=== PATIENT | male | born 1990 | race Caucasian/White ===

== ENCOUNTER 2017-03-22 14:56 | Emergency (ER) | payer OTHER ==
[~2017-03-22] VITALS: Ht 190.5 cm; Wt 110.0 kg
[~2017-03-22 14:56] MED LIST: MYCO360 PO; PROG1CAP PO
[2017-03-22 15:04] VITALS: BP 117/62; PULSE 86; RESP 14; TEMP 98.1; O2SAT 100
[2017-03-22] MEDS ORDERED: SODIUM CHLORIDE 0.9% FLUSH 10 ML FLUSH IV FLUSH PRN (15:15)
[2017-03-22] MEDS ORDERED: ONDANSETRON HCL 4 MG/2 ML VIAL IVP ONE (15:15)
[2017-03-22] MEDS ORDERED: SODIUM CHLOR 0.9% 1000 ML INJ 1,000 ML IV SCH (15:15)
--- NOTE | 2017-03-22 15:27 | PD ---
HPI Chief Complaint: muscle cramps Time Seen by Provider: 15:14 Travel History International Travel<30 days: No Contact w/Intl Traveler<30days: No Traveled to known affect area: No History of Present Illness HPI Patient comes emergency Department complaining of possible heat exhaustion. 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 Patient states he was feeling overheated he went inside to get some water started feeling like he is having chills and some muscle cramping in his abdomen went back outside thinking that air condition is making him shiver however when he went back outside he continued to have some shivering. Patient went back inside and laid down. Patient reports he has not ate today and thought that that may be the cause of his symptoms. Patient report he began feeling a little short of breath with this. Patient states that this resolved. Patient now having cramping in his bilateral lower extremities. Patient received minimal fluid from EMS en route. Denies doing anything else for this. Patient denies any chest pain, headaches, fevers, numbness or tingling anywhere, nausea , vomiting, or loss or change in bowel or bladder. PFSH Past Medical History Cardiovascular Problems: Yes ([facility]) Cerebrovascular Accident: No Diabetes: No Diminished Hearing: No Myocardial Infarction: No Past Surgical History Cardiac Surgery: Yes (HEART TRANSPLANT ) Social History Alcohol Use: Yes (OCCAS DRINKER) Tobacco Use: No Substance Use: No Allergies-Medications (Allergen,Severity, Reaction): Coded Allergies: No Known Allergies (Unverified , 03/20/16) Reported Meds & Prescriptions Reported Meds & Active Scripts Active Reported Aspirin 81 Mg Chew 162 Mg CHEW DAILY Sirolimus 0.5 Mg Tab 0.5 Mg PO DAILY Pravastatin 10 Mg Tab 10 Mg PO DAILY Lisinopril 2.5 Mg Tab 2.5 Mg PO DAILY Cellcept (Mycophenolate Mofetil) 250 Mg Cap 540 Mg PO BID Tacrolimus 1 Mg Cap 3 Mg PO Q12H Review of Systems Except as stated in HPI: all other systems reviewed are Neg Physical Exam Narrative GENERAL: Well-developed, well nourished, in no acute distress, and non-ill appearing. SKIN: Focused skin assessment warm and dry. HEAD: Atraumatic. Normocephalic. EYES: Pupils equal and round. EOMI. No scleral icterus. No injection or drainage. ENT: No nasal bleeding or discharge. Mucous membranes pink and moist. NECK: Trachea midline. No JVD. Supple. No nuclear rigidity. CARDIOVASCULAR: Regular rate and rhythm. No murmur appreciated. RESPIRATORY: No accessory muscle use. No respiratory distress. Clear to auscultation. Breath sounds equal bilaterally. GASTROINTESTINAL: Abdomen soft, non-tender, nondistended, and no guarding. Hepatic and splenic margins not palpable. Normal bowel sounds 4. No pulsatile mass. MUSCULOSKELETAL: No obvious deformities. No clubbing. No cyanosis. No edema. Full range of motion. NEUROLOGICAL: Awake and alert. No obvious cranial nerve deficits. Motor grossly within normal limits. Normal speech. PSYCHIATRIC: Appropriate mood and affect; insight and judgment normal. Data Data Last Documented VS Vital Signs Date Time Temp Pulse Resp B/P (MAP) Pulse Ox O2 Delivery O2 Flow Rate FiO2 03/22/17 15:59 98 Room Air 03/22/17 15:04 98.1 86 14 117/62 (80) Orders Orders Basic Metabolic Panel (Bmp) (03/22/17 15:15) Complete Blood Count With Diff (03/22/17 15:15) Urinalysis - C+S If Indicated (03/22/17 15:15) Iv Access Insert/Monitor (03/22/17 15:15) Ecg Monitoring (03/22/17 15:15) Oximetry (03/22/17 15:15) Ondansetron Inj (Zofran Inj) (03/22/17 15:15) Sodium Chlor 0.9% 1000 Ml Inj (Ns 1000 M (03/22/17 15:15) Sodium Chloride 0.9% Flush (Ns Flush) (03/22/17 15:15) Electrocardiogram (03/22/17 15:15) Chest, Single Ap (03/22/17 ) Creatine Kinase (Cpk) (03/22/17 15:15) Protein Corrected Calcium(Pcc) (03/22/17 15:40) Potassium Chlor 20 Meq Premix (Kcl 20 Me (03/22/17 17:00) Potassium Chloride (Kcl) (03/22/17 17:00) Sodium Chlor 0.9% 1000 Ml Inj (Ns 1000 M (03/22/17 17:00) Calcium Gluconate Inj (Calcium Gluconate (03/22/17 17:45) Admit Order (Ed Use Only) (03/22/17 18:40) Labs Laboratory Tests Test 03/22/17 15:40 03/22/17 16:50 White Blood Count 10.0 TH/MM3 Red Blood Count 4.90 MIL/MM3 Hemoglobin 14.7 GM/DL Hematocrit 43.1 % Mean Corpuscular Volume 88.0 FL Mean Corpuscular Hemoglobin 30.1 PG Mean Corpuscular Hemoglobin Concent 34.2 % Red Cell Distribution Width 11.9 % Platelet Count 172 TH/MM3 Mean Platelet Volume 9.5 FL Neutrophils (%) (Auto) 75.9 % Lymphocytes (%) (Auto) 13.7 % Monocytes (%) (Auto) 8.3 % Eosinophils (%) (Auto) 1.7 % Basophils (%) (Auto) 0.4 % Neutrophils # (Auto) 7.6 TH/MM3 Lymphocytes # (Auto) 1.4 TH/MM3 Monocytes # (Auto) 0.8 TH/MM3 Eosinophils # (Auto) 0.2 TH/MM3 Basophils # (Auto) 0.0 TH/MM3 CBC Comment DIFF FINAL Differential Comment Blood Urea Nitrogen 28 MG/DL Creatinine 1.98 MG/DL Random Glucose 68 MG/DL Total Protein 4.7 GM/DL Calcium Level 5.5 MG/DL Sodium Level 144 MEQ/L Potassium Level 2.2 MEQ/L Chloride Level 115 MEQ/L Carbon Dioxide Level 14.7 MEQ/L Anion Gap 14 MEQ/L Estimat Glomerular Filtration Rate 41 ML/MIN Protein Corrected Calcium 6.5 MG/DL Total Creatine Kinase 88 U/L Urine Color YELLOW Urine Turbidity HAZY Urine pH 5.0 Urine Specific [place] 1.006 Urine Protein NEG mg/dL Urine Glucose (UA) NEG mg/dL Urine Ketones NEG mg/dL Urine Occult Blood NEG Urine Nitrite NEG Urine Bilirubin NEG Urine Urobilinogen LESS THAN 2.0 MG/DL Urine Leukocyte Esterase NEG Urine RBC 1 /hpf Urine WBC 1 /hpf Urine Amorphous Sediment RARE Microscopic Urinalysis Comment CULT NOT INDICATED MDM Medical Decision Making Medical Screen Exam Complete: Yes Emergency Medical Condition: Yes Interpretation(s) EKG reviewed by Dr. Weems shows sinus rhythm with ventricular rate of 82. No STEMI. Chest x-ray read by the radiologist shows: No acute disease. Differential Diagnosis Electrolyte abnormality, dehydration, rhabdomyolysis, arrhythmia, other Narrative Course Patient was seen and examined. Initial laboratory and radiological studies were ordered. Patient was hydrated with IV fluid. 1620 patient reassessed found resting comfortably in bed in no acute distress. Reports symptoms improve. After reviewing laboratory values patient potassium calcium was placed. Discussed patient with Dr. Weems, who is agreeable with plan of care and disposition. Discussed all findings and plan care with the patient, who is agreeable for admission. All questions were answered. Discussed patient with hospitalist who is agreeable to admit the patient. Physician Communication Physician Communication [id number] Vazquez, who is agreeable to admit the patient for Dr. Flynn Diagnosis Primary Impression: Renal insufficiency Additional Impressions: Hypokalemia Hypocalcemia Admitting Information Admitting Physician Requests: Observation Condition: Stable Dominik Swanson Mar 22, 2017 15:27
[2017-03-22 15:59] VITALS: O2SAT 98
--- NOTE | 2017-03-22 16:10 | RADRPT ---
EXAM DATE/TIME: 03/22/2017 15:31 [facility] COMPARISON: CHEST SINGLE AP, March 20, 2016, 17:43. INDICATIONS : Dizziness. MEDICAL HISTORY : Hypoplastic left heart syndrome SURGICAL HISTORY : Heart transplant 08/2009 ENCOUNTER: Initial ACUITY: 1 day PAIN SCORE: 0/10 LOCATION: Bilateral chest FINDINGS: A single view of the chest demonstrates the lungs to be symmetrically aerated without evidence of mas s, infiltrate or effusion. The cardiomediastinal contours are unremarkable. Osseous structures are intact. CONCLUSION: No acute disease. J Luis Connolly Jr., MD on March 22, 2017 at 16:09 Board Certified Radiologist. This report was verified electronically.
[2017-03-22 16:14] LABS: AUTOMATED NEUTROPHIL # 7.6 TH/MM3 (1.8-7.7); BASOPHIL % 0.4 % (0.0-2.0); EOSINOPHIL # 0.2 TH/MM3 (0-0.4); EOSINOPHIL % 1.7 % (0.0-4.0); HEMATOCRIT 43.1 % (39.0-51.0); HEMO FLAGS DIFF FINAL; LYMPH % 13.7 % (9.0-44.0); LYMPHOCYTE # 1.4 TH/MM3 (1.0-4.8); MEAN CORPUSCULAR HEMOGLOBIN 30.1 PG (27.0-34.0); MEAN CORPUSCULAR HGB CONC 34.2 % (32.0-36.0); MONO % 8.3 % (0.0-8.0); NEUT % 75.9 % (16.0-70.0); PLATELET COUNT 172 TH/MM3 (150-450); RED CELL DISTRIBUTION WIDTH 11.9 % (11.6-17.2)
[2017-03-22 16:49] LABS: BICARBONATE 14.7 MEQ/L (21.0-32.0)
[2017-03-22 16:55] LABS: POTASSIUM 2.2 MEQ/L (3.5-5.1)
[2017-03-22] MEDS ORDERED: TACR1CAP PO (16:55)
[2017-03-22] MEDS ORDERED: MYCO250 PO (16:56)
[2017-03-22] MEDS ORDERED: PRAV10TA PO (16:57)
[2017-03-22] MEDS ORDERED: LISI2.5T3 PO (16:57)
[2017-03-22] MEDS ORDERED: SIRO1TAB PO (16:58)
[2017-03-22] MEDS ORDERED: ASPI81CH CHEW (16:59)
[2017-03-22] MEDS ORDERED: SODIUM CHLOR 0.9% 1000 ML INJ 1,000 ML IV ONE (17:00)
[2017-03-22] MEDS ORDERED: POTASSIUM CHLORIDE 20 MEQ CONTROLLED RELEASE TAB PO ONE (17:00)
[2017-03-22] MEDS ORDERED: POTASSIUM CHLOR 20 MEQ PREMIX 100 ML IV SCH (17:00)
[2017-03-22 17:10] LABS: CALCIUM-PROTEIN CORRECTED 6.5 MG/DL (8.5-10.1)
[2017-03-22 17:16] LABS: BLOOD, URINE NEG (NEG); COMMENT (UR) CULT NOT INDICATED; CULTURE IF INDICATED CULT NOT INDICATED; GLUCOSE,URINE NEG (NEG); KETONE, URINE NEG (NEG); NITRITE,URINE NEG (NEG); URINE COLOR YELLOW (YELLW/STRAW)
[2017-03-22] MEDS ORDERED: CALCIUM GLUCONATE INJ 1 GM in SODIUM CHLORIDE 0.9% INJ 100 ML IV ONE (17:45)
--- NOTE | 2017-03-23 09:55 | EKG ---
Date Performed: 03/22/2017 Time Performed: 15:24:36 PTAGE: 26 years EKG: Sinus rhythm LEFT ATRIAL ENLARGEMENT INCOMPLETE RIGHT BUNDLE BRANCH BLOCK NONSPECIFIC T-WAVE ABNORMALITY ABNORMAL ECG PREVIOUS TRACING : 03/20/2016 16.43 DOCTOR: Nguyễn Macias Interpretating Date/Time 03/23/2017 09:53:40
== END 2017-03-22 19:45 | disposition left against medical advice (07) ==
LOC: NEPE 14:56 → UNDOADMOB 18:42 → NEDA 18:42 → UNDODISOB 19:45 → NEPE 19:45
DX: N28.9 Disorder of kidney and ureter, unspecified (principal); E87.6 Hypokalemia; E83.51 Hypocalcemia; M79.1 Myalgia; R06.02 Shortness of breath; R94.31 Abnormal electrocardiogram [ECG] [EKG]; Z94.1 Heart transplant status; Z86.79 Personal history of other diseases of the circulatory system
CPT/HCPCS: 71010; 80048; 81001; 82550; 84155; 85025; 93005; 96374; 96375; 99285; G0378; J0610; J2405; J3480; J7030